=== PATIENT | male | born 1950 | race Caucasian/White ===

== ENCOUNTER 2022-04-27 08:57 | Inpatient (IN) | payer MEDICARE, OTHER ==
[~2022-04-27] VITALS: Ht 177.8 cm; Wt 81.6 kg
[~2022-04-27 08:57] MED LIST: BENZ1TAB70 PO; VICOT PO; ZIPR80CA2 PO; ZOLP10TA8 PO
[2022-04-27] MEDS ORDERED: VECURONIUM BROMIDE 10 MG/VIAL IVP ONE (09:15)
[2022-04-27] MEDS ORDERED: DILTIAZEM HCL 5 MG/ML 5 ML VIAL IVP ONE ×3 (09:30→10:00)
[2022-04-27] MEDS ORDERED: ETOMIDATE 2 MG/ML 10 ML VIAL IVP ONE ×2 (09:30→10:00)
[2022-04-27] MEDS ORDERED: MIDAZOLAM HCL 2 MG/2 ML VIAL IVP ONE (10:00)
[2022-04-27] MEDS ORDERED: SUCCINYLCHOLINE CHLORIDE 20 MG/ML 10 ML VIAL IVP ONE (10:00)
[2022-04-27] MEDS ORDERED: KETAMINE HCL 500 MG in DEXTROSE 5%-WATER 490 ML IV PRN (10:00)
[2022-04-27] MEDS ORDERED: DIGOXIN 250 MCG/ML 2 ML AMP IVP ONE ×2 (10:15→10:30)
[2022-04-27 10:32] LABS: BASOPHILS % (AUTO) 0.1 % (0.0-2.0); EOSINOPHILS % (AUTO) 0 % (1.0-6.0); HEMATOCRIT 43.3 % (41-53); HEMOGLOBIN 14.3 g/dL (13.5-17.5); LYMPHOCYTES # (AUTO) 0.4 K/uL (1.0-4.8); LYMPHOCYTES % (AUTO) 7.2 % (22.0-44.0); MEAN CORPUSCULAR HEMOGLOBIN 33.2 pg (26.0-34.0); MEAN CORPUSCULAR HGB CONC 33.1 G/dL (31.0-37.0); MEAN CORPUSCULAR VOLUME 101 fL (80-100); MONOCYTES # (AUTO) 0.5 K/uL (0.1-1.0); MONOCYTES % (AUTO) 8.8 % (2.0-9.0); NEUTROPHILS % (AUTO) 83.9 % (40.0-70.0); PLATELET COUNT (AUTO) 229 K/uL (150-450); RED BLOOD CELL COUNT(AUTO) 4.31 MIL/uL (4.50-5.90); RED CELL DISTRIBUTION WIDTH 12.9 % (11.5-14.5)
[2022-04-27 10:53] LABS: CALCIUM, TOTAL 7.8 mg/dL (8.8-10.5); CREATININE 5.19 mg/dL (0.60-1.30); POTASSIUM 3.9 mmol/L (3.5-5.1)
[2022-04-27] MEDS ORDERED: ONDANSETRON HCL 4 MG/2 ML VIAL IVP PRN (11:00)
[2022-04-27] MEDS ORDERED: SODIUM CHLORIDE 0.9% 1,000 ML IV ONE (11:00)
[2022-04-27] MEDS ORDERED: BISACODYL 10 MG RECTAL RECTAL SUPPOSITORY PR PRN (11:00)
[2022-04-27 11:03] LABS: LACTIC ACID 6.3 mmol/L (0.4-2.0)
[2022-04-27 11:05] LABS: INR 1.7 (0.9-1.1); PROTHROMBIN TIME 17.6 SEC (9.4-11.6)
[2022-04-27] MEDS ORDERED: SODIUM CHLORIDE 0.9% 2,350 ML IV ONE (11:15)
[2022-04-27] MEDS ORDERED: FUROSEMIDE 40 MG/4 ML VIAL IVP ONE (11:15)
[2022-04-27] MEDS ORDERED: CefTRIAXone 1 GM/DEXTROSE 50 ML IV ONE (11:15)
[2022-04-27 11:28] LABS: ALBUMIN 3.1 g/dL (3.4-5.0); BILIRUBIN,TOTAL 1.9 mg/dL (0.1-1.0)
[2022-04-27] MEDS ORDERED: AMIODARONE HCL 360 MG in DEXTROSE 5%-WATER 242.8 ML IV ONE (11:30)
[2022-04-27] MEDS ORDERED: AMIODARONE HCL 150 MG in DEXTROSE 5%-WATER 97 ML IV ONE (11:30)
[2022-04-27 12:30] LABS: ABG BASE EXCESS -9.1 mmol/L (-2.0-3.0); ABG CARBOXYHEMOGLOBIN 0.5 % (0.0-1.5); ABG HCO3 16.7 mmol/L (22.0-26.0); ABG METHEMOGLOBIN 0.1 % (0.0-1.5); ABG OXYGEN CONTENT 19.4 mL/dL (15.0-23.0); ABG OXYGEN SATURATION 99.4 % (95.0-98.0); ABG OXYHEMOGLOBIN 98.8 % (94.0-100.0); ABG PCO2 62 mmHg (35-45); ABG TOTAL HEMOGLOBIN 13.1 G/dL (12.0-18.0); PO2, ARTERIAL BG 437.3 mmHg (75.0-83.0); SOURCE, BLOOD GAS ARTERIAL; TEMPERATURE, FAHRENHEIT, BG 96.4 FAHREN (96.0-98.6)
[2022-04-27 12:32] LABS: ABG A-A DIFF O2 216.3 mmHg (10-20.0); ABG PH 7.125 (7.35-7.450); O2 DEVICE,BLOOD GAS VENTILATOR (ROOM AIR); SITE, BLOOD GAS RT RADIAL; VT, ABG 450 ml
[2022-04-27 12:33] LABS: PEEP,BG 5 cm H2O; SPONTANEOUS VT, BG 420 ml
[2022-04-27] MEDS: PIPERACILLIN SODIUM/TAZOBACTAM 2.25 GM in DEXTROSE 5%-WATER 50 ML IV SCH ×2 (12:39→18:04)
[2022-04-27] MEDS ORDERED: HEPARIN SODIUM 25000 UNITS/D5W 250 ML IV PRN (12:45)
[2022-04-27] MEDS ORDERED: HEPARIN SODIUM,PORCINE 5,000 UNITS/ML VIAL IVP ONE ×3 (12:45→15:00)
[2022-04-27] MEDS ORDERED: HEPARIN SODIUM,PORCINE 5,000 UNITS/ML VIAL IVP PRN ×3 (12:45→14:30)
[2022-04-27 13:06] LABS: GLUCOSE,POINT OF CARE 149 MG/DL (70-110)
[2022-04-27 14:03] LABS: INR 1.5 (0.9-1.1); PROTHROMBIN TIME 15.6 SEC (9.4-11.6)
[2022-04-27 16:00] VITALS: BP 139/75
[2022-04-27 16:10] LABS: ABG CARBOXYHEMOGLOBIN 0.8 % (0.0-1.5); ABG HCO3 19.9 mmol/L (22.0-26.0); ABG METHEMOGLOBIN 0.3 % (0.0-1.5); ABG OXYGEN CONTENT 18.5 mL/dL (15.0-23.0); ABG OXYGEN SATURATION 98.1 % (95.0-98.0); ABG PCO2 51 mmHg (35-45); ABG PH 7.255 (7.35-7.450); ABG TOTAL HEMOGLOBIN 13.4 G/dL (12.0-18.0); PO2, ARTERIAL BG 127.5 mmHg (75.0-83.0); SOURCE, BLOOD GAS ARTERIAL
[2022-04-27 16:11] LABS: ABG A-A DIFF O2 395.6 mmHg (10-20.0); O2 DEVICE,BLOOD GAS VENTILATOR (ROOM AIR); SITE, BLOOD GAS RT RADIAL; VT, ABG 500 ml
[2022-04-27 16:12] LABS: PEEP,BG 5 cm H2O; SPONTANEOUS VT, BG 510 ml
[2022-04-27] MEDS: BUMETANIDE 0.25 MG/ML 4 ML VIAL IVP SCH ×2 (16:15→20:42)
[2022-04-27] MEDS: HEPARIN SODIUM 25000 UNITS/D5W 250 ML IV PRN (16:21)
[2022-04-27] MEDS ORDERED: AMIODARONE HCL 540 MG in DEXTROSE 5%-WATER 239.2 ML IV ONE (17:30)
[2022-04-27] MEDS: FentaNYL CIT 1000MCG/0.9% NACL 100 ML IV PRN (18:03)
[2022-04-27] MEDS: PROPOFOL 1000 MG/ISO-OSM 100 ML IV PRN (18:03)
[2022-04-27] MEDS ORDERED: SODIUM CHLORIDE 0.9% 250 ML IV ONE (18:17)
[2022-04-27 20:00] VITALS: BP 110/70
[2022-04-27 20:51] LABS: CALCIUM, TOTAL 7.3 mg/dL (8.8-10.5); CREATININE 4.75 mg/dL (0.60-1.30); POTASSIUM 3.6 mmol/L (3.5-5.1)
[2022-04-27 21:26] LABS: APPEARANCE,URINE HAZY (CLEAR); BILIRUBIN,URINE NEGATIVE (NEGATIVE); GLUCOSE, URINE (UA) NEGATIVE (NEGATIVE); KETONES,URINE NEGATIVE (NEGATIVE); LEUKOCYTE ESTERASE ,URINE NEGATIVE (NEGATIVE); NITRATE,URINE NEGATIVE (NEGATIVE); OCCULT BLOOD,URINE LARGE (NEGATIVE); PROTEIN,URINE 30-70 mg/dL (NEGATIVE); SPECIFIC GRAVITIY, URINE 1.009 (1.003-1.030); UROBILINOGEN,URINE <=1.0 mg/dL (<=1.0)
[2022-04-27 21:34] LABS: AMPHET/METH SCREEN,URINE NEGATIVE (NEGATIVE); BARBITURATE SCREEN, URINE NEGATIVE (NEGATIVE); BENZODIAZEPINES SCREEN,URINE POSITIVE (NEGATIVE); CANNABINOID SCREEN,URINE POSITIVE (NEGATIVE); COCAINE SCREEN,URINE NEGATIVE (NEGATIVE); METHADONE SCREEN, URINE NEGATIVE (NEGATIVE); OPIATE SCREEN,URINE NEGATIVE (NEGATIVE); PHENCYCLIDINE SCREEN,URINE NEGATIVE (NEGATIVE)
[2022-04-27 21:35] LABS: BACTERIA,URINE Few /HPF (None Seen); SQUAMOUS EPITHELIAL CELL,UR Few /LPF (None Seen); WBC,URINE 0-2 /HPF (0-5)
[2022-04-27 21:36] LABS: AMORPHOUS SEDIMENT,UR Moderate /LPF (None Seen)
[2022-04-27 21:59] LABS: CREATININE,URINE RANDOM 40.3 mg/dL (30.0-125.0)
[2022-04-28] VITALS: BP 108/55
[2022-04-28] MEDS: PROPOFOL 1000 MG/ISO-OSM 100 ML IV PRN ×3 (02:44→22:32)
[2022-04-28 03:41] LABS: BASOPHILS % (AUTO) 0.1 % (0.0-2.0); EOSINOPHILS % (AUTO) 0 % (1.0-6.0); HEMATOCRIT 37.8 % (41-53); HEMOGLOBIN 12.7 g/dL (13.5-17.5); LYMPHOCYTES # (AUTO) 0.4 K/uL (1.0-4.8); LYMPHOCYTES % (AUTO) 6.4 % (22.0-44.0); MEAN CORPUSCULAR HEMOGLOBIN 32.9 pg (26.0-34.0); MEAN CORPUSCULAR HGB CONC 33.5 G/dL (31.0-37.0); MEAN CORPUSCULAR VOLUME 98 fL (80-100); MONOCYTES # (AUTO) 0.6 K/uL (0.1-1.0); MONOCYTES % (AUTO) 9.6 % (2.0-9.0); NEUTROPHILS # (AUTO) 5.1 K/uL (1.8-7.7); NEUTROPHILS % (AUTO) 83.9 % (40.0-70.0); PLATELET COUNT (AUTO) 187 K/uL (150-450); RED BLOOD CELL COUNT(AUTO) 3.85 MIL/uL (4.50-5.90)
[2022-04-28] MEDS: PIPERACILLIN SODIUM/TAZOBACTAM 2.25 GM in DEXTROSE 5%-WATER 50 ML IV SCH ×3 (03:50→18:22)
[2022-04-28 04:00] VITALS: BP 100/68
[2022-04-28] MEDS: HEPARIN SODIUM,PORCINE 5,000 UNITS/ML VIAL IVP PRN (04:05)
[2022-04-28 04:17] LABS: CALCIUM, TOTAL 7.1 mg/dL (8.8-10.5); CREATININE 4.8 mg/dL (0.60-1.30); POTASSIUM 3.9 mmol/L (3.5-5.1); THYROID STIMULATING HORMONE 1.24 uIU/mL (0.36-3.74)
[2022-04-28 06:21] LABS: AMMONIA 33 umol/L (11-32)
[2022-04-28] MEDS: FentaNYL CIT 1000MCG/0.9% NACL 100 ML IV PRN ×2 (06:31→21:46)
[2022-04-28 08:00] VITALS: BP 103/67
[2022-04-28] MEDS ORDERED: SODIUM CHLORIDE 0.9% 500 ML IV ONE (08:19)
[2022-04-28] MEDS: BUMETANIDE 0.25 MG/ML 4 ML VIAL IVP SCH ×2 (08:28→21:05)
[2022-04-28] MEDS: ETHYL ALCOHOL 62% ANTISEPTIC NASAL SANITIZER 0.6 ML AMPUL NASAL SCH ×2 (08:28→21:02)
[2022-04-28] MEDS: PANTOPRAZOLE SODIUM 40 MG/VIAL IVP SCH (08:28)
[2022-04-28] MEDS: HEPARIN SODIUM 25000 UNITS/D5W 250 ML IV PRN (08:50)
[2022-04-28] MEDS ORDERED: VANCOMYCIN 1GM/WATER(PEG/NADA) 200 ML IV SCH (10:15)
[2022-04-28] MEDS ORDERED: VANCOMYCIN HCL 1 GM in DEXTROSE 5%-WATER 250 ML IV PRN (10:45)
[2022-04-28] MEDS ORDERED: VANCOMYCIN 1GM/WATER(PEG/NADA) 200 ML IV ONE (11:00)
[2022-04-28] MEDS: AMIODARONE HCL 750 MG in DEXTROSE 5%-WATER 485 ML IV SCH (11:18)
[2022-04-28 12:00] VITALS: BP 92/54
[2022-04-28 16:00] VITALS: BP 98/55
[2022-04-28 20:00] VITALS: BP 93/55
[2022-04-29] VITALS: BP 89/64
[2022-04-29] MEDS: PIPERACILLIN SODIUM/TAZOBACTAM 2.25 GM in DEXTROSE 5%-WATER 50 ML IV SCH ×3 (03:08→20:57)
[2022-04-29 04:00] VITALS: BP 92/52
[2022-04-29] MEDS: FentaNYL CIT 1000MCG/0.9% NACL 100 ML IV PRN ×3 (06:33→15:48)
[2022-04-29 06:59] LABS: BASOPHILS % (AUTO) 0.2 % (0.0-2.0); EOSINOPHILS % (AUTO) 0.1 % (1.0-6.0); HEMATOCRIT 35.3 % (41-53); HEMOGLOBIN 11.9 g/dL (13.5-17.5); LYMPHOCYTES # (AUTO) 0.5 K/uL (1.0-4.8); LYMPHOCYTES % (AUTO) 3.9 % (22.0-44.0); MEAN CORPUSCULAR HEMOGLOBIN 33.2 pg (26.0-34.0); MEAN CORPUSCULAR HGB CONC 33.6 G/dL (31.0-37.0); MEAN CORPUSCULAR VOLUME 99 fL (80-100); MONOCYTES # (AUTO) 0.6 K/uL (0.1-1.0); MONOCYTES % (AUTO) 4.8 % (2.0-9.0); PLATELET COUNT (AUTO) 204 K/uL (150-450); RED BLOOD CELL COUNT(AUTO) 3.58 MIL/uL (4.50-5.90); RED CELL DISTRIBUTION WIDTH 12.9 % (11.5-14.5)
[2022-04-29 07:15] LABS: CALCIUM, TOTAL 7.2 mg/dL (8.8-10.5); CREATININE 5.5 mg/dL (0.60-1.30); POTASSIUM 3.9 mmol/L (3.5-5.1); VANCOMYCIN,RANDOM 9.5 mcg/mL (25.0-50.0)
[2022-04-29] MEDS: PANTOPRAZOLE SODIUM 40 MG/VIAL IVP SCH (07:35)
[2022-04-29] MEDS: BUMETANIDE 0.25 MG/ML 4 ML VIAL IVP SCH ×2 (07:35→20:58)
[2022-04-29] MEDS: ETHYL ALCOHOL 62% ANTISEPTIC NASAL SANITIZER 0.6 ML AMPUL NASAL SCH ×2 (07:36→20:58)
[2022-04-29 08:00] VITALS: BP 85/56
[2022-04-29] MEDS ORDERED: VANCOMYCIN 1GM/WATER(PEG/NADA) 200 ML IV ONE (08:00)
[2022-04-29] MEDS: QUEtiapine FUMARATE 25 MG TABLET PO SCH ×2 (09:45→21:00)
[2022-04-29] MEDS ORDERED: CALCIUM GLUCONATE 100 MG/ML 10 ML IVP ONE (10:00)
[2022-04-29 10:50] LABS: MAGNESIUM 1.8 mg/dL (1.80-2.40); PHOSPHORUS 5.2 mg/dL (2.5-4.9)
[2022-04-29] MEDS: AMIODARONE HCL 750 MG in DEXTROSE 5%-WATER 485 ML IV SCH (11:48)
[2022-04-29] MEDS: PHENYLEPHRINE 200 MG/D5%-WATER 250 ML IV PRN (11:57)
[2022-04-29 12:54] VITALS: BP 102/45
[2022-04-29] MEDS: HEPARIN SODIUM,PORCINE 5,000 UNITS/ML VIAL IVP PRN (14:46)
[2022-04-29] MEDS: PROPOFOL 1000 MG/ISO-OSM 100 ML IV PRN (14:47)
[2022-04-29 16:00] VITALS: BP 168/82
[2022-04-29 20:00] VITALS: BP 95/63
[2022-04-29] MEDS: HEPARIN SODIUM 25000 UNITS/D5W 250 ML IV PRN (20:45)
[2022-04-30] VITALS: BP 94/58
[2022-04-30] MEDS: FentaNYL CIT 1000MCG/0.9% NACL 100 ML IV PRN ×2 (02:21→14:33)
[2022-04-30] MEDS: PIPERACILLIN SODIUM/TAZOBACTAM 2.25 GM in DEXTROSE 5%-WATER 50 ML IV SCH ×3 (02:22→17:59)
[2022-04-30] MEDS: PROPOFOL 1000 MG/ISO-OSM 100 ML IV PRN ×2 (02:24→14:35)
[2022-04-30 04:00] VITALS: BP 90/53
[2022-04-30] MEDS: NOREPINEPHRINE 8 MG/D5%-WATER 250 ML IV PRN (05:21)
[2022-04-30 06:38] LABS: BASOPHILS % (AUTO) 0.2 % (0.0-2.0); EOSINOPHILS % (AUTO) 0.2 % (1.0-6.0); HEMATOCRIT 35.9 % (41-53); HEMOGLOBIN 11.6 g/dL (13.5-17.5); LYMPHOCYTES # (AUTO) 0.5 K/uL (1.0-4.8); LYMPHOCYTES % (AUTO) 2.7 % (22.0-44.0); MEAN CORPUSCULAR HEMOGLOBIN 32.1 pg (26.0-34.0); MEAN CORPUSCULAR HGB CONC 32.4 G/dL (31.0-37.0); MEAN CORPUSCULAR VOLUME 99 fL (80-100); MONOCYTES # (AUTO) 0.7 K/uL (0.1-1.0); MONOCYTES % (AUTO) 3.6 % (2.0-9.0); NEUTROPHILS # (AUTO) 17.9 K/uL (1.8-7.7); PLATELET COUNT (AUTO) 260 K/uL (150-450); RED BLOOD CELL COUNT(AUTO) 3.63 MIL/uL (4.50-5.90); RED CELL DISTRIBUTION WIDTH 13.1 % (11.5-14.5)
[2022-04-30 06:46] LABS: CALCIUM, TOTAL 8.1 mg/dL (8.8-10.5); CREATININE 6.39 mg/dL (0.60-1.30); PHOSPHORUS 6.5 mg/dL (2.5-4.9); POTASSIUM 3.6 mmol/L (3.5-5.1); VANCOMYCIN,RANDOM 17.9 mcg/mL (25.0-50.0)
[2022-04-30 08:00] VITALS: BP 86/46
[2022-04-30] MEDS ORDERED: VANCOMYCIN HCL 1 GM in DEXTROSE 5%-WATER 250 ML IV ONE (08:00)
[2022-04-30] MEDS: PANTOPRAZOLE SODIUM 40 MG/VIAL IVP SCH (08:04)
[2022-04-30] MEDS: QUEtiapine FUMARATE 25 MG TABLET PO SCH ×2 (08:04→22:01)
[2022-04-30] MEDS: ETHYL ALCOHOL 62% ANTISEPTIC NASAL SANITIZER 0.6 ML AMPUL NASAL SCH ×2 (08:04→22:01)
[2022-04-30 08:16] LABS: NEUTROPHILS % (AUTO) 93.3 % (40.0-70.0)
[2022-04-30] MEDS: BUMETANIDE 0.25 MG/ML 4 ML VIAL IVP SCH (09:00)
[2022-04-30] MEDS: PHENYLEPHRINE 200 MG/D5%-WATER 250 ML IV PRN ×2 (09:18→19:16)
[2022-04-30] MEDS ORDERED: SODIUM CHLORIDE 0.9% 500 ML IV ONE (09:45)
[2022-04-30] MEDS: AMIODARONE HCL 750 MG in DEXTROSE 5%-WATER 485 ML IV SCH (11:27)
[2022-04-30 12:00] VITALS: BP 96/65
[2022-04-30] MEDS ORDERED: SODIUM CHLORIDE 0.9% 1,000 ML IV SCH (15:15)
[2022-04-30] MEDS ORDERED: VANCOMYCIN 1GM/WATER(PEG/NADA) 200 ML IV PRN (15:15)
[2022-04-30 16:00] VITALS: BP 114/61
[2022-04-30] MEDS: SODIUM CHLORIDE 0.9% 1,000 ML IV SCH (16:01)
[2022-04-30] MEDS: HEPARIN SODIUM 25000 UNITS/D5W 250 ML IV PRN (16:03)
[2022-04-30] MEDS ORDERED: SODIUM CHLORIDE 0.9% 250 ML IV ONE (23:04)
[2022-05-01] VITALS (7 sets, daily range): BP systolic 102–131; BP diastolic 59–74
[2022-05-01] MEDS: PROPOFOL 1000 MG/ISO-OSM 100 ML IV PRN ×3 (01:10→22:02)
[2022-05-01] MEDS: FentaNYL CIT 1000MCG/0.9% NACL 100 ML IV PRN ×2 (01:11→13:35)
[2022-05-01] MEDS: NOREPINEPHRINE 8 MG/D5%-WATER 250 ML IV PRN (01:12)
[2022-05-01] MEDS: PIPERACILLIN SODIUM/TAZOBACTAM 2.25 GM in DEXTROSE 5%-WATER 50 ML IV SCH ×3 (04:38→18:18)
[2022-05-01] MEDS: HEPARIN SODIUM 25000 UNITS/D5W 250 ML IV PRN ×2 (04:41→22:03)
[2022-05-01] MEDS: SODIUM CHLORIDE 0.9% 1,000 ML IV SCH ×2 (04:41→23:28)
[2022-05-01] MEDS: PHENYLEPHRINE 200 MG/D5%-WATER 250 ML IV PRN ×2 (06:39→17:35)
[2022-05-01 07:05] LABS: HEMATOCRIT 32.8 % (41-53); HEMOGLOBIN 11.1 g/dL (13.5-17.5); MEAN CORPUSCULAR HEMOGLOBIN 32.8 pg (26.0-34.0); MEAN CORPUSCULAR HGB CONC 33.9 G/dL (31.0-37.0); MEAN CORPUSCULAR VOLUME 97 fL (80-100); PLATELET COUNT (AUTO) 238 K/uL (150-450); RED BLOOD CELL COUNT(AUTO) 3.39 MIL/uL (4.50-5.90); RED CELL DISTRIBUTION WIDTH 13.1 % (11.5-14.5)
[2022-05-01 07:13] LABS: ALBUMIN 1.5 g/dL (3.4-5.0); BILIRUBIN,TOTAL 1.6 mg/dL (0.1-1.0); C-REACTIVE PROTEIN QUANT 14.11 mg/dL (0.00-0.30); CALCIUM, TOTAL 7.7 mg/dL (8.8-10.5); CREATININE 6.04 mg/dL (0.60-1.30); MAGNESIUM 1.7 mg/dL (1.80-2.40); PHOSPHORUS 6.4 mg/dL (2.5-4.9); POTASSIUM 3.8 mmol/L (3.5-5.1); VANCOMYCIN,RANDOM 21.5 mcg/mL (25.0-50.0)
[2022-05-01 08:30] LABS: BAND NEUTROPHILS % (MANUAL) 10 % (0-5); LYMPHOCYTES % (MANUAL) 8 % (22-44); MONOCYTES % (MANUAL) 5 % (2-9); SEGMENTED NEUTROPHILS % 77 % (40-70)
[2022-05-01] MEDS: QUEtiapine FUMARATE 25 MG TABLET PO SCH ×2 (09:20→20:34)
[2022-05-01] MEDS: PANTOPRAZOLE SODIUM 40 MG/VIAL IVP SCH (09:21)
[2022-05-01] MEDS: ETHYL ALCOHOL 62% ANTISEPTIC NASAL SANITIZER 0.6 ML AMPUL NASAL SCH ×2 (09:21→20:34)
[2022-05-01] MEDS: AMIODARONE HCL 750 MG in DEXTROSE 5%-WATER 485 ML IV SCH (12:00)
[2022-05-01] MEDS: AMIODARONE HCL 200 MG TABLET PO SCH ×2 (13:27→20:34)
[2022-05-02] VITALS: BP 120/84
[2022-05-02] MEDS: PIPERACILLIN SODIUM/TAZOBACTAM 2.25 GM in DEXTROSE 5%-WATER 50 ML IV SCH ×3 (02:21→19:12)
[2022-05-02] MEDS: PHENYLEPHRINE 200 MG/D5%-WATER 250 ML IV PRN ×2 (02:21→19:54)
[2022-05-02] MEDS: NOREPINEPHRINE 8 MG/D5%-WATER 250 ML IV PRN (02:22)
[2022-05-02] MEDS: FentaNYL CIT 1000MCG/0.9% NACL 100 ML IV PRN ×2 (02:22→13:01)
[2022-05-02 04:00] VITALS: BP 139/75
[2022-05-02] MEDS: PROPOFOL 1000 MG/ISO-OSM 100 ML IV PRN ×3 (04:13→21:51)
[2022-05-02 08:00] VITALS: BP 92/60
[2022-05-02] MEDS: QUEtiapine FUMARATE 25 MG TABLET PO SCH ×2 (08:15→21:51)
[2022-05-02] MEDS: ETHYL ALCOHOL 62% ANTISEPTIC NASAL SANITIZER 0.6 ML AMPUL NASAL SCH ×2 (08:15→21:51)
[2022-05-02] MEDS: AMIODARONE HCL 200 MG TABLET PO SCH ×2 (08:15→21:51)
[2022-05-02] MEDS: PANTOPRAZOLE SODIUM 40 MG/VIAL IVP SCH (08:15)
[2022-05-02 09:52] LABS: HEMATOCRIT 35.7 % (41-53); MEAN CORPUSCULAR HGB CONC 33.7 G/dL (31.0-37.0); MEAN CORPUSCULAR VOLUME 98 fL (80-100); PLATELET COUNT (AUTO) 254 K/uL (150-450); RED BLOOD CELL COUNT(AUTO) 3.65 MIL/uL (4.50-5.90); RED CELL DISTRIBUTION WIDTH 13.5 % (11.5-14.5)
[2022-05-02 10:14] LABS: C-REACTIVE PROTEIN QUANT 9.56 mg/dL (0.00-0.30); CALCIUM, TOTAL 8.1 mg/dL (8.8-10.5); CREATININE 5.67 mg/dL (0.60-1.30); MAGNESIUM 1.7 mg/dL (1.80-2.40); PHOSPHORUS 6.3 mg/dL (2.5-4.9); POTASSIUM 3.6 mmol/L (3.5-5.1); VANCOMYCIN,RANDOM 17.7 mcg/mL (25.0-50.0)
[2022-05-02 10:22] LABS: BAND NEUTROPHILS % (MANUAL) 11 % (0-5); LYMPHOCYTES % (MANUAL) 7 % (22-44); MONOCYTES % (MANUAL) 6 % (2-9); SEGMENTED NEUTROPHILS % 76 % (40-70)
[2022-05-02] MEDS ORDERED: MAGNESIUM SULFATE 0.5 GM in DEXTROSE 5%-WATER 50 ML IV ONE (11:00)
[2022-05-02 12:00] VITALS: BP 93/54
[2022-05-02] MEDS ORDERED: VANCOMYCIN 1GM/WATER(PEG/NADA) 200 ML IV ONE (12:00)
[2022-05-02] MEDS: HEPARIN SODIUM 25000 UNITS/D5W 250 ML IV PRN (12:23)
[2022-05-02] MEDS: DEXMEDETOMIDINE HCL 400 MCG in SODIUM CHLORIDE 0.9% 96 ML IV PRN (12:25)
[2022-05-02 16:00] VITALS: BP 97/49
[2022-05-02 18:37] LABS: ABG BASE EXCESS -2.5 mmol/L (-2.0-3.0); ABG CARBOXYHEMOGLOBIN 0.8 % (0.0-1.5); ABG HCO3 22.3 mmol/L (22.0-26.0); ABG METHEMOGLOBIN 0.3 % (0.0-1.5); ABG OXYGEN CONTENT 16.3 mL/dL (15.0-23.0); ABG OXYGEN SATURATION 96.4 % (95.0-98.0); ABG OXYHEMOGLOBIN 95.3 % (94.0-100.0); ABG PCO2 45 mmHg (35-45); ABG PH 7.335 (7.35-7.450); ABG TOTAL HEMOGLOBIN 12.1 G/dL (12.0-18.0); O2 DEVICE,BLOOD GAS VENTILATOR (ROOM AIR); PEEP,BG 5 cm H2O; PO2, ARTERIAL BG 91.8 mmHg (75.0-83.0); SITE, BLOOD GAS RT RADIAL; SOURCE, BLOOD GAS ARTERIAL; TEMPERATURE, FAHRENHEIT, BG 98.6 FAHREN (96.0-98.6); VT, ABG 500 ml
[2022-05-02 20:00] VITALS: BP 126/60
[2022-05-03] VITALS: BP 97/50
[2022-05-03] MEDS: HEPARIN SODIUM 25000 UNITS/D5W 250 ML IV PRN ×2 (00:56→17:10)
[2022-05-03] MEDS: SODIUM CHLORIDE 0.9% 1,000 ML IV SCH (02:27)
[2022-05-03] MEDS: PIPERACILLIN SODIUM/TAZOBACTAM 2.25 GM in DEXTROSE 5%-WATER 50 ML IV SCH ×3 (02:27→19:28)
[2022-05-03 04:00] VITALS: BP 109/65
[2022-05-03] MEDS: PROPOFOL 1000 MG/ISO-OSM 100 ML IV PRN ×3 (04:55→19:39)
[2022-05-03] MEDS: FentaNYL CIT 1000MCG/0.9% NACL 100 ML IV PRN ×2 (06:40→16:28)
[2022-05-03 07:08] LABS: HEMATOCRIT 35.3 % (41-53); HEMOGLOBIN 11.8 g/dL (13.5-17.5); MEAN CORPUSCULAR HEMOGLOBIN 32.9 pg (26.0-34.0); MEAN CORPUSCULAR HGB CONC 33.5 G/dL (31.0-37.0); MEAN CORPUSCULAR VOLUME 98 fL (80-100); PLATELET COUNT (AUTO) 262 K/uL (150-450); RED CELL DISTRIBUTION WIDTH 13.4 % (11.5-14.5)
[2022-05-03 07:36] LABS: CALCIUM, TOTAL 8.3 mg/dL (8.8-10.5); CREATININE 5.38 mg/dL (0.60-1.30); MAGNESIUM 1.9 mg/dL (1.80-2.40); POTASSIUM 3.3 mmol/L (3.5-5.1)
[2022-05-03 08:00] VITALS: BP 91/55
[2022-05-03] MEDS ORDERED: POTASSIUM CHL 10 MEQ/WATER 50 ML IV ONE (08:30)
[2022-05-03 08:37] LABS: BAND NEUTROPHILS % (MANUAL) 12 % (0-5); LYMPHOCYTES % (MANUAL) 10 % (22-44); METAMYELOCYTES % 6 % (0-0); MONOCYTES % (MANUAL) 5 % (2-9); SEGMENTED NEUTROPHILS % 67 % (40-70)
[2022-05-03] MEDS: PANTOPRAZOLE SODIUM 40 MG/VIAL IVP SCH (10:10)
[2022-05-03] MEDS: ETHYL ALCOHOL 62% ANTISEPTIC NASAL SANITIZER 0.6 ML AMPUL NASAL SCH ×2 (10:10→21:32)
[2022-05-03] MEDS: QUEtiapine FUMARATE 25 MG TABLET PO SCH ×2 (10:11→21:32)
[2022-05-03] MEDS: AMIODARONE HCL 200 MG TABLET PO SCH ×2 (10:12→21:31)
[2022-05-03 12:00] VITALS: BP 83/46
[2022-05-03 16:00] VITALS: BP 90/52
[2022-05-03] MEDS: DEXMEDETOMIDINE HCL 400 MCG in SODIUM CHLORIDE 0.9% 96 ML IV PRN (16:27)
[2022-05-03 20:00] VITALS: BP 96/57
[2022-05-04] VITALS: BP 102/61
[2022-05-04] MEDS: DEXMEDETOMIDINE HCL 400 MCG in SODIUM CHLORIDE 0.9% 96 ML IV PRN ×3 (00:44→21:20)
[2022-05-04] MEDS: PHENYLEPHRINE 200 MG/D5%-WATER 250 ML IV PRN (03:19)
[2022-05-04] MEDS: FentaNYL CIT 1000MCG/0.9% NACL 100 ML IV PRN ×3 (03:59→22:49)
[2022-05-04 04:00] VITALS: BP 100/65
[2022-05-04] MEDS: PIPERACILLIN SODIUM/TAZOBACTAM 2.25 GM in DEXTROSE 5%-WATER 50 ML IV SCH ×3 (04:00→18:33)
[2022-05-04] MEDS: SODIUM CHLORIDE 0.9% 1,000 ML IV SCH (04:01)
[2022-05-04] MEDS: PROPOFOL 1000 MG/ISO-OSM 100 ML IV PRN ×2 (05:52→18:33)
[2022-05-04] MEDS: HEPARIN SODIUM 25000 UNITS/D5W 250 ML IV PRN ×3 (05:53→21:47)
[2022-05-04] MEDS: HEPARIN SODIUM,PORCINE 5,000 UNITS/ML VIAL IVP PRN (05:58)
[2022-05-04 08:00] VITALS: BP 116/74
[2022-05-04 09:00] LABS: HEMATOCRIT 34.2 % (41-53); HEMOGLOBIN 11.5 g/dL (13.5-17.5); MEAN CORPUSCULAR HEMOGLOBIN 33.1 pg (26.0-34.0); MEAN CORPUSCULAR HGB CONC 33.7 G/dL (31.0-37.0); MEAN CORPUSCULAR VOLUME 98 fL (80-100); PLATELET COUNT (AUTO) 282 K/uL (150-450); RED BLOOD CELL COUNT(AUTO) 3.48 MIL/uL (4.50-5.90); RED CELL DISTRIBUTION WIDTH 13.4 % (11.5-14.5)
[2022-05-04 09:19] LABS: MAGNESIUM 1.7 mg/dL (1.80-2.40); PHOSPHORUS 5.6 mg/dL (2.5-4.9)
[2022-05-04 09:26] LABS: ALBUMIN 1.5 g/dL (3.4-5.0); BILIRUBIN,TOTAL 1.4 mg/dL (0.1-1.0); C-REACTIVE PROTEIN QUANT 6.59 mg/dL (0.00-0.30); CALCIUM, TOTAL 8.2 mg/dL (8.8-10.5); CREATININE 5.03 mg/dL (0.60-1.30); POTASSIUM 3.7 mmol/L (3.5-5.1); TOTAL PROTEIN, SERUM 6.9 g/dL (6.4-8.2)
[2022-05-04] MEDS: ETHYL ALCOHOL 62% ANTISEPTIC NASAL SANITIZER 0.6 ML AMPUL NASAL SCH ×2 (09:26→21:19)
[2022-05-04] MEDS: PANTOPRAZOLE SODIUM 40 MG/VIAL IVP SCH (09:27)
[2022-05-04] MEDS: AMIODARONE HCL 200 MG TABLET PO SCH ×2 (09:28→21:19)
[2022-05-04] MEDS: QUEtiapine FUMARATE 25 MG TABLET PO SCH ×2 (09:28→21:19)
[2022-05-04 10:43] LABS: BAND NEUTROPHILS % (MANUAL) 7 % (0-5); EOSINOPHILS % (MANUAL) 1 % (1-6); LYMPHOCYTES % (MANUAL) 6 % (22-44); METAMYELOCYTES % 7 % (0-0); MONOCYTES % (MANUAL) 3 % (2-9); SEGMENTED NEUTROPHILS % 76 % (40-70)
[2022-05-04 12:00] VITALS: BP 103/71
[2022-05-04 12:54] LABS: ABG BASE EXCESS -2.5 mmol/L (-2.0-3.0); ABG CARBOXYHEMOGLOBIN 0.7 % (0.0-1.5); ABG HCO3 22.6 mmol/L (22.0-26.0); ABG METHEMOGLOBIN 0.3 % (0.0-1.5); ABG PCO2 38 mmHg (35-45); ABG PH 7.391 (7.35-7.450); ABG TOTAL HEMOGLOBIN 11.9 G/dL (12.0-18.0); PO2, ARTERIAL BG 88.3 mmHg (75.0-83.0); SOURCE, BLOOD GAS ARTERIAL; TEMPERATURE, FAHRENHEIT, BG 98.6 FAHREN (96.0-98.6)
[2022-05-04 13:34] LABS: ABG A-A DIFF O2 81.2 mmHg (10-20.0); CPAP, BG 0 cm H2O; O2 DEVICE,BLOOD GAS VENTILATOR (ROOM AIR); PRESSURE SUPPORT, BG 8 cm H2O; SITE, BLOOD GAS RT RADIAL; SPONTANEOUS VT, BG 420 ml; VENT MODE, BG CPAP (ROOM AIR)
[2022-05-04] MEDS ORDERED: SODIUM CHLORIDE 0.9% 500 ML IV ONE (14:47)
[2022-05-04 16:00] VITALS: BP 99/59
[2022-05-04 20:00] VITALS: BP 109/56
[2022-05-05] VITALS: BP 128/63
[2022-05-05] MEDS: PROPOFOL 1000 MG/ISO-OSM 100 ML IV PRN ×2 (00:50→14:52)
[2022-05-05 04:00] VITALS: BP 114/65
[2022-05-05] MEDS: PIPERACILLIN SODIUM/TAZOBACTAM 2.25 GM in DEXTROSE 5%-WATER 50 ML IV SCH ×3 (05:01→18:21)
[2022-05-05] MEDS: SODIUM CHLORIDE 0.9% 1,000 ML IV SCH (05:01)
[2022-05-05 06:03] LABS: HEMATOCRIT 31.8 % (41-53); HEMOGLOBIN 10.7 g/dL (13.5-17.5); MEAN CORPUSCULAR HGB CONC 33.8 G/dL (31.0-37.0); MEAN CORPUSCULAR VOLUME 98 fL (80-100); PLATELET COUNT (AUTO) 259 K/uL (150-450); RED BLOOD CELL COUNT(AUTO) 3.25 MIL/uL (4.50-5.90); RED CELL DISTRIBUTION WIDTH 13.3 % (11.5-14.5)
[2022-05-05 06:49] LABS: CALCIUM, TOTAL 8.1 mg/dL (8.8-10.5); POTASSIUM 3.2 mmol/L (3.5-5.1); VANCOMYCIN,RANDOM 16.2 mcg/mL (25.0-50.0)
[2022-05-05 06:53] LABS: CREATININE 4.44 mg/dL (0.60-1.30)
[2022-05-05 06:58] LABS: MAGNESIUM 1.5 mg/dL (1.80-2.40); PHOSPHORUS 5.2 mg/dL (2.5-4.9)
[2022-05-05] MEDS ORDERED: MAGNESIUM SULFATE 1 GM in DEXTROSE 5%-WATER 50 ML IV ONE (07:30)
[2022-05-05] MEDS ORDERED: POTASSIUM CHL 10 MEQ/WATER 50 ML IV ONE (07:30)
[2022-05-05 08:00] VITALS: BP 92/47
[2022-05-05] MEDS ORDERED: VANCOMYCIN 1GM/WATER(PEG/NADA) 200 ML IV ONE (08:00)
[2022-05-05] MEDS: PANTOPRAZOLE SODIUM 40 MG/VIAL IVP SCH (08:11)
[2022-05-05] MEDS: ETHYL ALCOHOL 62% ANTISEPTIC NASAL SANITIZER 0.6 ML AMPUL NASAL SCH ×2 (08:12→20:53)
[2022-05-05] MEDS: AMIODARONE HCL 200 MG TABLET PO SCH ×2 (08:12→20:53)
[2022-05-05] MEDS: QUEtiapine FUMARATE 25 MG TABLET PO SCH ×2 (08:12→20:53)
[2022-05-05 08:58] LABS: BAND NEUTROPHILS % (MANUAL) 6 % (0-5); LYMPHOCYTES % (MANUAL) 7 % (22-44); METAMYELOCYTES % 4 % (0-0); MONOCYTES % (MANUAL) 6 % (2-9); MYELOCYTES % 3 % (0-0); SEGMENTED NEUTROPHILS % 74 % (40-70)
[2022-05-05] MEDS: DEXMEDETOMIDINE HCL 400 MCG in SODIUM CHLORIDE 0.9% 96 ML IV PRN ×2 (09:20→16:26)
[2022-05-05] MEDS: FentaNYL CIT 1000MCG/0.9% NACL 100 ML IV PRN ×2 (09:21→20:53)
[2022-05-05] MEDS: PHENYLEPHRINE 200 MG/D5%-WATER 250 ML IV PRN (11:34)
[2022-05-05 12:00] VITALS: BP 92/46
[2022-05-05] MEDS: HEPARIN SODIUM 25000 UNITS/D5W 250 ML IV PRN (13:35)
[2022-05-05 16:00] VITALS: BP 110/56
[2022-05-05] MEDS: ALBUMIN HUMAN 25%-25GM/100ML 100 ML IV SCH ×2 (16:11→22:37)
[2022-05-05] MEDS: ACETAMINOPHEN 325 MG TABLET PO PRN (16:12)
[2022-05-05] MEDS ORDERED: INDIUM IN-111 OXYQUINOLINE/.5MCL ISOTOPE 1 EA INJ INJ ONE (16:15)
[2022-05-05] MEDS ORDERED: SODIUM CHLORIDE 0.9% 1,000 ML IV ONE (17:30)
[2022-05-05 20:00] VITALS: BP 105/58
[2022-05-06] VITALS: BP 97/51
[2022-05-06] MEDS: PROPOFOL 1000 MG/ISO-OSM 100 ML IV PRN ×2 (00:50→13:08)
[2022-05-06] MEDS: PHENYLEPHRINE 200 MG/D5%-WATER 250 ML IV PRN ×2 (02:25→13:08)
[2022-05-06] MEDS: PIPERACILLIN SODIUM/TAZOBACTAM 2.25 GM in DEXTROSE 5%-WATER 50 ML IV SCH ×3 (02:27→19:00)
[2022-05-06 04:00] VITALS: BP 99/49
[2022-05-06] MEDS: SODIUM CHLORIDE 0.9% 1,000 ML IV SCH (04:11)
[2022-05-06] MEDS: ALBUMIN HUMAN 25%-25GM/100ML 100 ML IV SCH ×4 (04:12→20:01)
[2022-05-06] MEDS: ACETAMINOPHEN 325 MG TABLET PO PRN ×2 (04:26→08:17)
[2022-05-06 05:50] LABS: HEMATOCRIT 23.2 % (41-53); MEAN CORPUSCULAR HEMOGLOBIN 33.4 pg (26.0-34.0); MEAN CORPUSCULAR HGB CONC 34.2 G/dL (31.0-37.0); MEAN CORPUSCULAR VOLUME 98 fL (80-100); PLATELET COUNT (AUTO) 251 K/uL (150-450); RED BLOOD CELL COUNT(AUTO) 2.38 MIL/uL (4.50-5.90); RED CELL DISTRIBUTION WIDTH 13.2 % (11.5-14.5)
[2022-05-06 06:04] LABS: ALBUMIN 2.3 g/dL (3.4-5.0); BILIRUBIN,TOTAL 1.9 mg/dL (0.1-1.0); C-REACTIVE PROTEIN QUANT 3.64 mg/dL (0.00-0.30); CALCIUM, TOTAL 8.2 mg/dL (8.8-10.5); CREATININE 4.05 mg/dL (0.60-1.30); POTASSIUM 3.5 mmol/L (3.5-5.1); TOTAL PROTEIN, SERUM 6.5 g/dL (6.4-8.2)
[2022-05-06 06:10] LABS: MAGNESIUM 1.7 mg/dL (1.80-2.40); PHOSPHORUS 5.4 mg/dL (2.5-4.9)
[2022-05-06] MEDS: NOREPINEPHRINE 8 MG/D5%-WATER 250 ML IV PRN ×2 (06:22→14:41)
[2022-05-06 06:23] LABS: BAND NEUTROPHILS % (MANUAL) 6 % (0-5); BASOPHILS % (MANUAL) 1 % (0-2); LYMPHOCYTES % (MANUAL) 8 % (22-44); METAMYELOCYTES % 2 % (0-0); MONOCYTES % (MANUAL) 2 % (2-9); MYELOCYTES % 1 % (0-0); SEGMENTED NEUTROPHILS % 80 % (40-70)
[2022-05-06] MEDS: HEPARIN SODIUM 25000 UNITS/D5W 250 ML IV PRN (06:39)
[2022-05-06 08:00] VITALS: BP 89/47
[2022-05-06] MEDS: AMIODARONE HCL 200 MG TABLET PO SCH (08:16)
[2022-05-06] MEDS: PANTOPRAZOLE SODIUM 40 MG/VIAL IVP SCH (08:16)
[2022-05-06] MEDS: ETHYL ALCOHOL 62% ANTISEPTIC NASAL SANITIZER 0.6 ML AMPUL NASAL SCH ×2 (08:16→20:01)
[2022-05-06] MEDS: QUEtiapine FUMARATE 25 MG TABLET PO SCH (08:17)
[2022-05-06] MEDS: FentaNYL CIT 1000MCG/0.9% NACL 100 ML IV PRN (08:27)
[2022-05-06] MEDS ORDERED: MAGNESIUM SULFATE 1 GM in DEXTROSE 5%-WATER 50 ML IV ONE (09:00)
[2022-05-06] MEDS ORDERED: SODIUM CHLORIDE 0.9% 500 ML IV ONE (09:01)
[2022-05-06] MEDS ORDERED: AMIODARONE HCL 360 MG in DEXTROSE 5%-WATER 242.8 ML IV ONE (10:00)
[2022-05-06] MEDS ORDERED: DIGOXIN 250 MCG/ML 2 ML AMP IVP ONE (10:00)
[2022-05-06 10:23] LABS: HEMOGLOBIN 6.8 g/dL (13.5-17.5)
[2022-05-06 10:24] LABS: HEMATOCRIT 20.2 % (41-53)
[2022-05-06] MEDS ORDERED: SODIUM CHLORIDE 0.9% 250 ML IV ONE (10:30)
[2022-05-06] MEDS ORDERED: MAGNESIUM SULFATE 0.5 GM in DEXTROSE 5%-WATER 50 ML IV ONE (11:15)
[2022-05-06 12:00] VITALS: BP 92/61
[2022-05-06] MEDS: DEXMEDETOMIDINE HCL 400 MCG in SODIUM CHLORIDE 0.9% 96 ML IV PRN (13:07)
[2022-05-06 13:08] VITALS: BP 89/39
[2022-05-06] MEDS: MORPHINE SULFATE 100 MG/NS/PF 100 ML IV PRN ×2 (15:17→20:21)
[2022-05-06] MEDS ORDERED: AMIODARONE HCL 540 MG in DEXTROSE 5%-WATER 239.2 ML IV ONE (16:00)
[2022-05-07] MEDS: PIPERACILLIN SODIUM/TAZOBACTAM 2.25 GM in DEXTROSE 5%-WATER 50 ML IV SCH (03:00)
[2022-05-07] MEDS ORDERED: AMIODARONE HCL 750 MG in DEXTROSE 5%-WATER 485 ML IV SCH (10:00)
== END 2022-05-07 02:45 | DRG 870 ==
LOC: EMS 08:59 → ICUN 11:24 → ICU 12:32
PROVIDERS: ADMIT Internal Medicine; ATTEND Internal Medicine
PROC: 5A1955Z Respiratory Ventilation, Greater than 96 Consecutive Hours (ICD-10-PCS; principal; 2022-04-27)
PROC: 0BH17EZ Insertion of Endotracheal Airway into Trachea, Via Natural or Artificial Opening (ICD-10-PCS; 2022-04-27)
PROC: 0T9B70Z Drainage of Bladder with Drainage Device, Via Natural or Artificial Opening (ICD-10-PCS; 2022-04-27)
PROC: 05HD33Z Insertion of Infusion Device into Right Cephalic Vein, Percutaneous Approach (ICD-10-PCS; 2022-04-28)
PROC: 03HC33Z Insertion of Infusion Device into Left Radial Artery, Percutaneous Approach (ICD-10-PCS; 2022-05-04)
DX: A41.01 Sepsis due to Methicillin susceptible Staphylococcus aureus (principal); J96.01 Acute respiratory failure with hypoxia; N17.0 Acute kidney failure with tubular necrosis; J69.0 Pneumonitis due to inhalation of food and vomit; R65.21 Severe sepsis with septic shock; M62.82 Rhabdomyolysis; G93.40 Encephalopathy, unspecified; I13.0 Hypertensive heart and chronic kidney disease with heart failure and stage 1 through stage 4 chronic kidney disease, or unspecified chronic kidney disease; I42.9 Cardiomyopathy, unspecified; Z99.11 Dependence on respirator [ventilator] status; N13.30 Unspecified hydronephrosis; I82.622 Acute embolism and thrombosis of deep veins of left upper extremity; J44.9 Chronic obstructive pulmonary disease, unspecified; I50.9 Heart failure, unspecified; I48.91 Unspecified atrial fibrillation; N40.1 Benign prostatic hyperplasia with lower urinary tract symptoms; B19.20 Unspecified viral hepatitis C without hepatic coma; R33.8 Other retention of urine; D64.9 Anemia, unspecified; F31.9 Bipolar disorder, unspecified; I08.0 Rheumatic disorders of both mitral and aortic valves; N18.9 Chronic kidney disease, unspecified; E83.42 Hypomagnesemia; E87.6 Hypokalemia; Z66 Do not resuscitate; Z87.440 Personal history of urinary (tract) infections; Z82.49 Family history of ischemic heart disease and other diseases of the circulatory system; Z87.442 Personal history of urinary calculi; Z98.84 Bariatric surgery status; Z87.891 Personal history of nicotine dependence; I80.8 Phlebitis and thrombophlebitis of other sites
CPT/HCPCS: 36245; 36569; 36600; 70450; 71045; 71250; 73700; 74018; 74176; 76937; 80048; 80053; 80202; 80307; 81001; 82140; 82550; 82570; 82805; 82962; 83605; 83735; 83874; 83880; 84100; 84145; 84156; 84300; 84443; 84484; 85014; 85018; 85025; 85610; 85730; 86140; 86850; 86900; 86901; 86923; 87040; 87070; 87077; 87081; 87186; 87205; 93005; 93306; 93970; 94002; 94003; 99285; A9547; C9113; G0378; J0282; J0610; J0696; J1160; J1644; J1940; J2250; J2270; J2370; J2543; J2704; J3370; J3475; J3480; J3490; J7030; J7040; J7050; J7060; P9046; Q9967; 36415-L1; 36415-TC